=== PATIENT | male | born 1995 | race African-American/Black ===

== ENCOUNTER 2019-07-19 14:17 | Emergency (ER) | payer OTHER ==
[~2019-07-19] VITALS: Ht 175.3 cm; Wt 79.0 kg
[2019-07-19 14:29] VITALS: BP 132/81
[2019-07-19] MEDS ORDERED: BACITRACIN ZINC OINT UDPKT TOP ONE (15:30)
[2019-07-19] MEDS ORDERED: TETANUS, DIPHTHERIA, PERTUSSIS VAC/PF 0.5ML (>7YR OLD) IM ONE (15:45)
== END 2019-07-19 15:58 | disposition home or self-care (01) ==
LOC: ER 14:25
DX: S00.81XA Abrasion of other part of head, initial encounter (principal); X58.XXXA Exposure to other specified factors, initial encounter; Y93.89 Activity, other specified; Y92.89 Other specified places as the place of occurrence of the external cause
CPT/HCPCS: 90471; 90715; 99283